=== PATIENT | male | born 2005 | race Caucasian/White ===

== ENCOUNTER 2024-05-06 01:15 | Emergency (ER) | payer MEDICAID, OTHER ==
[~2024-05-06] VITALS: Ht 177.8 cm; Wt 99.3 kg
[2024-05-06 01:26] VITALS: O2SAT 98
[2024-05-06] MEDS ORDERED: IBUP-2029 MT (01:36)
[2024-05-06] MEDS ORDERED: BO1 TP (01:36)
[2024-05-06] MEDS: LIDOCAINE HCL/PF 1% 10 MG/ML 5ML VIAL INFIL ONE (01:45)
[2024-05-06] MEDS: TETANUS, DIPHTHERIA, PERTUSSIS VAC/PF 0.5ML (>10YR OLD) IM ONE (01:45)
[2024-05-06] MEDS: BACITRACIN ZINC OINT UDPKT TOP ONE (01:52)
[2024-05-06] MEDS: IBUPROFEN 600MG TABLET PO ONE (01:53)
[2024-05-06 02:30] VITALS: BP 121/69; PULSE 73; RESP 18; TEMP 36.61404; O2SAT 100
== END 2024-05-06 02:45 | disposition home or self-care (01) ==
LOC: ER 01:15
DX: S61.216A Laceration without foreign body of right little finger without damage to nail, initial encounter (principal); W26.0XXA Contact with knife, initial encounter; Y93.89 Activity, other specified; Y92.89 Other specified places as the place of occurrence of the external cause; Y99.8 Other external cause status
CPT/HCPCS: 90715; 12001; 90471; 99283; J3490; Z7610 ×2